=== PATIENT | female | born 1985 | race Caucasian/White ===

== ENCOUNTER 2016-10-28 15:17 | Emergency (ER) | payer OTHER ==
[~2016-10-28] VITALS: Ht 165.1 cm; Wt 95.6 kg
[~2016-10-28 15:17] MED LIST: ATENOLOL PO; CITALOPRAM HBR10 MG PO; ENDOCET 5-3251 EACH PO; GLYBURIDE-METF1 EAC1 PO; IBUPROFEN800 MG PO; METHYLDOPA250 MG PO; METOPROLOL TAR100 MG PO; PRENATAL TABLE1 EAC3 PO; TAMIFLU75 MG PO; ZOFRAN4 MG PO
[2016-10-28 15:35] VITALS: BP 152/87
[2016-10-28] MEDS ORDERED: TESSALON200 MG PO (16:53)
== END 2016-10-28 17:16 | disposition home or self-care (01) ==
LOC: EME 15:17
DX: R05 Cough (principal); F17.200 Nicotine dependence, unspecified, uncomplicated
CPT/HCPCS: 71020; 99281; 99283

== ENCOUNTER 2016-11-13 16:25 | Inpatient (IN) | payer OTHER ==
[~2016-11-13] VITALS: Ht 165.1 cm; Wt 95.8 kg
[~2016-11-13 16:25] MED LIST changes: -CITALOPRAM HBR10 MG PO; +CITALOPRAM HBR20 MG PO; +TESSALON200 MG PO
[2016-11-13 17:31] LABS: ADD MIUA? YES; BILIRUBIN NEGATIVE; BLOOD NEGATIVE; COLOR YELLOW ((YELLOW)); GLUCOSE (STRIP) >=500; KETONES 5; LEUKOCYTES LARGE; NITRITE NEGATIVE; PROTEIN (STRIP) 30; SPECIFIC GRAVITY 1.025 (1.000-1.030); UROBILINOGEN 0.2 MG/DL (0.2-1.0)
[2016-11-13 17:32] LABS: INTERNAL CONTROL VALID? YES
[2016-11-13 17:54] LABS: BACTERIA NONE SEEN /HPF; EPITHELIAL CELLS 1+ /HPF; MUCUS NONE SEEN /LPF; UCUL ADDED? YES; WHITE BLOOD CELLS TNTC /HPF (0-5)
[2016-11-13 18:09] LABS: EOSINOPHIL (%) 0.2 % (0-5); HEMATOCRIT 34.7 % (36.0-46.0); IMMATURE GRANULOCYTE (%) 0.4 % (0.0-0.7); IMMATURE GRANULOCYTE COUNT 0.1 K/uL; INSTRUMENT ABS NEUTROPHIL CT 11.1 K/uL; LYMPHOCYTE COUNT 1.3 K/uL (1.0-2.8); MCH 28.2 PG (29.0-34.0); MCHC 33.4 G/DL (30.0-36.0); MCV 84.2 FL (83-99); MONOCYTE (%) 8.7 % (3-12); MONOCYTE COUNT 1.2 K/uL (0-0.8); NEUTROPHIL (%) 80.9 % (45-76); NEUTROPHIL COUNT 11.1 K/uL (1.8-6.4); PLATELET COUNT 268 K/uL (156-360); RBC DIS.WIDTH-CV 12.3 % (11.8-14.6); RBC DIS.WIDTH-SD 37.5 % (39-53); RED BLOOD COUNT 4.12 M/uL (3.80-5.20); WHITE BLOOD COUNT 13.7 K/uL (4.1-10.2)
[2016-11-13 18:20] LABS: CHLORIDE 97 mEq/L (99-109); POTASSIUM 3.3 mEq/L (3.7-5.4); SODIUM 133 mEq/L (136-147)
[2016-11-13 18:22] LABS: GLUCOSE 319 mg/dL (70-99)
[2016-11-13 18:23] LABS: ANION GAP 12 MEQ/L (2-14)
[2016-11-13 18:24] LABS: TOTAL BILIRUBIN 0.3 mg/dL (0.0-1.0)
[2016-11-13 18:25] LABS: ALKALINE PHOSPHATASE 80 IU/L (3-129)
[2016-11-13 18:26] LABS: GFR ESTIMATE (CALCULATED) > 59 mL/min/
[2016-11-13 18:27] LABS: UREA NITROGEN (BUN) 6 mg/dL (9-23)
[2016-11-13] MEDS ORDERED: LISINOPRIL40 MG PO (19:52)
[2016-11-13 22:41] VITALS: BP 126/62
[2016-11-14 04:01] VITALS: BP 122/62
[2016-11-14 05:34] LABS: HEMATOCRIT 35.1 % (36.0-46.0); MCH 28.1 PG (29.0-34.0); MCHC 32.5 G/DL (30.0-36.0); MCV 86.5 FL (83-99); MEAN PLAT.VOLUME 9.9 uM^3 (9.5-12.4); PLATELET COUNT 255 K/uL (156-360); RBC DIS.WIDTH-CV 12.6 % (11.8-14.6); RBC DIS.WIDTH-SD 40.1 % (39-53); RED BLOOD COUNT 4.06 M/uL (3.80-5.20); WHITE BLOOD COUNT 15.2 K/uL (4.1-10.2)
[2016-11-14 06:01] LABS: ANION GAP 7 MEQ/L (2-14); CHLORIDE 102 MEQ/L (99-109); GFR ESTIMATE (CALCULATED) > 59 mL/min/; GLUCOSE 224 mg/dL (70-99); POTASSIUM 3.7 MEQ/L (3.7-5.4); SAMPLE HEMOLYSIS CHECK 0; SAMPLE ICTERIC CHECK 0; SAMPLE LIPEMIA CHECK 0; SODIUM 138 MEQ/L (136-147); UREA NITROGEN (BUN) 7 mg/dL (9-23)
[2016-11-14 06:42] VITALS: BP 132/78
[2016-11-14 08:12] LABS: POINT-OF-CARE USER ID NUTSLF44
[2016-11-14 08:14] VITALS: BP 128/78
[2016-11-14 11:13] VITALS: BP 133/87
[2016-11-14 12:28] LABS: Estimated Average Glucose 229 mg/dL (70-123); HEMOGLOBIN A1c (GLYCOHEMOGLOB) 9.6 % HGB (Below 5.7)
[2016-11-14 12:46] LABS: POINT-OF-CARE METER ID UU13113698; POINT-OF-CARE USER ID ENVKC36
[2016-11-14 15:35] VITALS: BP 139/73
[2016-11-14 16:31] LABS: POINT-OF-CARE METER ID UU14208750
[2016-11-14 21:37] LABS: POINT-OF-CARE METER ID UU14208750
[2016-11-15 00:18] VITALS: BP 129/71
[2016-11-15 06:14] LABS: HEMATOCRIT 29.5 % (36.0-46.0); MCH 28.7 PG (29.0-34.0); MCHC 33.2 G/DL (30.0-36.0); MCV 86.5 FL (83-99); MEAN PLAT.VOLUME 10.3 uM^3 (9.5-12.4); PLATELET COUNT 237 K/uL (156-360); RBC DIS.WIDTH-CV 12.7 % (11.8-14.6); RBC DIS.WIDTH-SD 40.2 % (39-53); RED BLOOD COUNT 3.41 M/uL (3.80-5.20); WHITE BLOOD COUNT 9.8 K/uL (4.1-10.2)
[2016-11-15 06:24] LABS: POINT-OF-CARE METER ID UU14208750
[2016-11-15 06:39] LABS: ANION GAP 11 MEQ/L (2-14); CHLORIDE 103 MEQ/L (99-109); GFR ESTIMATE (CALCULATED) > 59 mL/min/; GLUCOSE 243 mg/dL (70-99); POTASSIUM 3.4 MEQ/L (3.7-5.4); SAMPLE HEMOLYSIS CHECK 0; SAMPLE ICTERIC CHECK 0; SAMPLE LIPEMIA CHECK 0; SODIUM 138 MEQ/L (136-147); UREA NITROGEN (BUN) 5 mg/dL (9-23)
[2016-11-15 06:51] LABS: EOSINOPHIL (%) 2.3 % (0-5); EOSINOPHIL COUNT 0.2 K/uL (0-0.3); IMMATURE GRANULOCYTE (%) 1.4 % (0.0-0.7); IMMATURE GRANULOCYTE COUNT 0.1 K/uL; INSTRUMENT ABS NEUTROPHIL CT 6.7 K/uL; LYMPHOCYTE COUNT 1.8 K/uL (1.0-2.8); MONOCYTE COUNT 0.9 K/uL (0-0.8); NEUTROPHIL (%) 68.5 % (45-76); NEUTROPHIL COUNT 6.7 K/uL (1.8-6.4)
[2016-11-15 07:50] VITALS: BP 143/88
[2016-11-15 12:01] LABS: POINT-OF-CARE METER ID UU14208750; POINT-OF-CARE USER ID PUTDRM
[2016-11-15 15:00] VITALS: BP 128/78
[2016-11-15 16:43] LABS: POINT-OF-CARE METER ID UU14208750; POINT-OF-CARE USER ID PUTDRM
[2016-11-15 21:58] LABS: POINT-OF-CARE METER ID UU14162508
[2016-11-15 23:37] VITALS: BP 159/78
[2016-11-16 07:06] LABS: POINT-OF-CARE METER ID UU14162508
[2016-11-16 07:50] VITALS: BP 138/68
[2016-11-16 11:08] LABS: POINT-OF-CARE METER ID UU14208750
[2016-11-16] MEDS ORDERED: CEFTIN500 MG PO (13:10)
== END 2016-11-16 13:46 | disposition home or self-care (01) | DRG 690 ==
LOC: EME 16:25 → 4EAST 21:30 → EDOF 21:30 → ENRESERV 21:34 → 4EAST 22:27 → ENRESERV 11-14 13:39 → 2EAST 11-14 15:30
PROVIDERS: Emergency Medicine; Internal Medicine
DX: N10 Acute pyelonephritis (principal); B96.20 Unspecified Escherichia coli [E. coli] as the cause of diseases classified elsewhere; E86.0 Dehydration; E87.6 Hypokalemia; R00.0 Tachycardia, unspecified; E11.9 Type 2 diabetes mellitus without complications; I10 Essential (primary) hypertension; F17.210 Nicotine dependence, cigarettes, uncomplicated
CPT/HCPCS: 71020; 76770; 80048; 80053; 80200; 81003; 82948; 83036; 83605; 84703; 85025; 85027; 87040; 87077; 87086; 87186; 99281; 99285; J0696; J1650; J1815; J2270; J2405; J3260; J7030; J7050

== ENCOUNTER 2017-02-17 08:51 | Emergency (ER) | payer OTHER ==
[~2017-02-17] VITALS: Ht 165.1 cm; Wt 95.4 kg
[~2017-02-17 08:51] MED LIST changes: +CEFTIN500 MG PO; +LISINOPRIL40 MG PO
[2017-02-17] MEDS ORDERED: METFORMIN HCL1000 MG PO (09:09)
[2017-02-17] MEDS ORDERED: GLIPIZIDE5 MG PO (09:09)
[2017-02-17 09:43] LABS: CARBON DIOXIDE (BICARBONATE) 22.8 MEQ/L (20-31)
[2017-02-17 09:54] LABS: BASOPHIL (%) 0.1 % (0-1); EOSINOPHIL COUNT 0.1 K/uL (0-0.3); HEMATOCRIT 44.6 % (36.0-46.0); IMMATURE GRANULOCYTE (%) 0.6 % (0.0-0.7); LYMPHOCYTE COUNT 0.4 K/uL (1.0-2.8); MCH 28.7 PG (29.0-34.0); MCHC 33.6 G/DL (30.0-36.0); MCV 85.4 FL (83-99); MONOCYTE (%) 2.9 % (3-12); MONOCYTE COUNT 0.2 K/uL (0-0.8); NEUTROPHIL (%) 89.4 % (45-76); NEUTROPHIL COUNT 6.2 K/uL (1.8-6.4); PLATELET COUNT 169 K/uL (156-360); RBC DIS.WIDTH-CV 13.3 % (11.8-14.6); RBC DIS.WIDTH-SD 41.5 % (39-53); RED BLOOD COUNT 5.22 M/uL (3.80-5.20)
[2017-02-17 10:05] LABS: ALBUMIN 3.7 g/dL (3.2-4.8); CHLORIDE 103 mEq/L (99-109); MAGNESIUM 1.6 mg/dL (1.3-2.7); POTASSIUM 4.8 mEq/L (3.7-5.4); SODIUM 131 mEq/L (136-147)
[2017-02-17 10:07] LABS: GLUCOSE 258 mg/dL (70-99); TOTAL PROTEIN 6.5 g/dL (6.4-8.3)
[2017-02-17 10:09] LABS: TOTAL BILIRUBIN 0.7 mg/dL (0.0-1.0)
[2017-02-17 10:11] LABS: ALKALINE PHOSPHATASE 53 IU/L (3-129); CREATININE 0.6 mg/dL (0.6-1.3); GFR ESTIMATE (CALCULATED) > 59 mL/min/
[2017-02-17 10:12] LABS: AST (GOT) 16 IU/L (2-34); UREA NITROGEN (BUN) 20 mg/dL (9-23)
[2017-02-17 10:14] LABS: ALT (GPT) 13 IU/L (3-49); LIPASE 28 U/L (1.0-51.0)
[2017-02-17 10:20] LABS: QUANTITATIVE HCG < 4.0 MIU/ML
[2017-02-17 10:33] LABS: APPEARANCE SL.HAZY ((CLEAR)); BILIRUBIN NEGATIVE; BLOOD NEGATIVE; COLOR YELLOW ((YELLOW)); GLUCOSE (STRIP) >=500; KETONES 20; LEUKOCYTES TRACE; NITRITE NEGATIVE; PROTEIN (STRIP) NEGATIVE; UROBILINOGEN 0.2 MG/DL (0.2-1.0)
[2017-02-17 10:35] LABS: BACTERIA NONE SEEN /HPF; EPITHELIAL CELLS 1+ /HPF; MUCUS TRACE /LPF; RED BLOOD CELLS 0-5 /HPF (0-5); UCUL ADDED? NO; WHITE BLOOD CELLS 0-5 /HPF (0-5)
[2017-02-17] MEDS ORDERED: ZOFRAN ODT4 MG PO (11:00)
[2017-02-17] MEDS ORDERED: NAPROXEN500 MG PO (11:00)
[2017-02-17 12:28] VITALS: BP 132/94
== END 2017-02-17 12:28 | disposition home or self-care (01) ==
LOC: EME 08:51
PROVIDERS: Physician Assistant
DX: R11.2 Nausea with vomiting, unspecified (principal); E87.1 Hypo-osmolality and hyponatremia; M62.838 Other muscle spasm; I10 Essential (primary) hypertension; E11.9 Type 2 diabetes mellitus without complications; Z79.84 Long term (current) use of oral hypoglycemic drugs; F17.200 Nicotine dependence, unspecified, uncomplicated
CPT/HCPCS: 80053; 81003; 82803; 83690; 83735; 84702; 85025; 99281; 99285; J1885; J7030; J7120

== ENCOUNTER 2017-05-06 11:14 | Emergency (ER) | payer OTHER ==
[~2017-05-06] VITALS: Ht 165.1 cm; Wt 102.3 kg
[~2017-05-06 11:14] MED LIST changes: +GLIPIZIDE5 MG PO; +METFORMIN HCL1000 MG PO; +NAPROXEN500 MG PO; +ZOFRAN ODT4 MG PO
[2017-05-06 11:49] LABS: HEMATOCRIT 41.7 % (36.0-46.0); HEMOGLOBIN 13.8 G/DL (11.9-15.5); MCH 28.2 PG (29.0-34.0); MCHC 33.1 G/DL (30.0-36.0); MCV 85.3 FL (83-99); PLATELET COUNT 233 K/uL (156-360); RBC DIS.WIDTH-CV 12.7 % (11.8-14.6); RBC DIS.WIDTH-SD 39.1 % (39-53); RED BLOOD COUNT 4.89 M/uL (3.80-5.20); WHITE BLOOD COUNT 11.9 K/uL (4.1-10.2)
[2017-05-06 12:00] LABS: ALBUMIN 4.2 g/dL (3.2-4.8); CHLORIDE 106 mEq/L (99-109); POTASSIUM 4.7 mEq/L (3.7-5.4); SODIUM 135 mEq/L (136-147)
[2017-05-06 12:02] LABS: GLUCOSE 194 mg/dL (70-99)
[2017-05-06 12:04] LABS: TOTAL BILIRUBIN 0.3 mg/dL (0.0-1.0)
[2017-05-06 12:06] LABS: ALKALINE PHOSPHATASE 56 IU/L (3-129); CREATININE 0.7 mg/dL (0.6-1.3); GFR ESTIMATE (CALCULATED) > 59 mL/min/
[2017-05-06 12:06] LABS: APPEARANCE CLEAR ((CLEAR)); BILIRUBIN NEGATIVE; BLOOD NEGATIVE; COLOR YELLOW ((YELLOW)); GLUCOSE (STRIP) >=500; KETONES NEGATIVE; LEUKOCYTES NEGATIVE; NITRITE NEGATIVE; PROTEIN (STRIP) NEGATIVE; SPECIFIC GRAVITY 1.022 (1.000-1.030); UCUL ADDED? NO; UROBILINOGEN 0.2 MG/DL (0.2-1.0)
[2017-05-06 12:07] LABS: UREA NITROGEN (BUN) 13 mg/dL (9-23)
[2017-05-06 12:08] LABS: AST (GOT) 12 IU/L (2-34)
[2017-05-06 12:09] LABS: ALT (GPT) 16 IU/L (3-49)
[2017-05-06 12:18] LABS: QUANTITATIVE HCG < 4.0 MIU/ML
[2017-05-06 13:23] LABS: LIPASE 14 U/L (1.0-51.0)
[2017-05-06] MEDS ORDERED: PEPCID20 MG PO (13:42)
[2017-05-06] MEDS ORDERED: CARAFATE1 GM PO (13:42)
[2017-05-06 13:56] VITALS: BP 146/81
== END 2017-05-06 14:00 | disposition home or self-care (01) ==
LOC: EME 11:14
DX: K29.70 Gastritis, unspecified, without bleeding (principal); I10 Essential (primary) hypertension; E11.9 Type 2 diabetes mellitus without complications; Z79.84 Long term (current) use of oral hypoglycemic drugs; F17.200 Nicotine dependence, unspecified, uncomplicated
CPT/HCPCS: 80053; 81003; 83690; 84702; 85027; 99281; 99284

== ENCOUNTER 2017-06-14 12:40 | Inpatient (IN) | payer OTHER ==
[~2017-06-14] VITALS: Ht 165.1 cm; Wt 105.3 kg
[~2017-06-14 12:40] MED LIST changes: +CARAFATE1 GM PO; +PEPCID20 MG PO
[2017-06-14 13:54] LABS: HEMATOCRIT 38.6 % (36.0-46.0); HEMOGLOBIN 13.2 G/DL (11.9-15.5); MCHC 34.2 G/DL (30.0-36.0); MCV 84.8 FL (83-99); PLATELET COUNT 229 K/uL (156-360); RBC DIS.WIDTH-CV 12.8 % (11.8-14.6); RBC DIS.WIDTH-SD 39.5 % (39-53); RED BLOOD COUNT 4.55 M/uL (3.80-5.20); WHITE BLOOD COUNT 12.8 K/uL (4.1-10.2)
[2017-06-14 14:05] LABS: CHLORIDE 100 mEq/L (99-109); POTASSIUM 4.4 mEq/L (3.7-5.4); SODIUM 133 mEq/L (136-147)
[2017-06-14 14:06] LABS: GLUCOSE 306 mg/dL (70-99)
[2017-06-14 14:10] LABS: CREATININE 0.8 mg/dL (0.6-1.3); GFR ESTIMATE (CALCULATED) > 59 mL/min/
[2017-06-14 14:11] LABS: UREA NITROGEN (BUN) 11 mg/dL (9-23)
[2017-06-14 14:20] LABS: QUANTITATIVE HCG < 4.0 MIU/ML
[2017-06-14 14:22] LABS: APPEARANCE CLEAR ((CLEAR)); BILIRUBIN NEGATIVE; BLOOD SMALL; COLOR AMBER ((YELLOW)); GLUCOSE (STRIP) >=500; KETONES NEGATIVE; LEUKOCYTES SMALL; NITRITE POSITIVE; PROTEIN (STRIP) NEGATIVE; SPECIFIC GRAVITY 1.025 (1.000-1.030)
[2017-06-14 14:32] LABS: BACTERIA NONE SEEN /HPF; EPITHELIAL CELLS RARE /HPF; MUCUS TRACE /LPF; RED BLOOD CELLS 0-5 /HPF (0-5); UCUL ADDED? YES; WHITE BLOOD CELLS TNTC /HPF (0-5)
[2017-06-14] MEDS ORDERED: BUPROPION HCL150 M2 PO (17:48)
[2017-06-14] MEDS ORDERED: LISINOPRIL40 MG PO (17:56)
[2017-06-14] MEDS ORDERED: ADVIL,NUPRIN,M200 MG PO (17:56)
[2017-06-14 20:43] VITALS: BP 112/70
[2017-06-14 23:34] VITALS: BP 119/65
[2017-06-15 03:17] VITALS: BP 133/74
[2017-06-15 07:19] VITALS: BP 135/76
[2017-06-15 15:15] VITALS: BP 123/63
[2017-06-15 23:37] VITALS: BP 133/77
[2017-06-16 07:21] LABS: ALBUMIN 3.2 G/DL (3.2-4.8); ALKALINE PHOSPHATASE 54 IU/L (3-129); ALT (GPT) 6 IU/L (3-49); AST (GOT) < 7 IU/L (2-34); CHLORIDE 102 MEQ/L (99-109); CREATININE 0.5 MG/DL (0.6-1.3); GFR ESTIMATE (CALCULATED) > 59 mL/min/; GLUCOSE 235 mg/dL (70-99); HEMATOCRIT 31.8 % (36.0-46.0); HEMOGLOBIN 10.5 G/DL (11.9-15.5); MCH 27.9 PG (29.0-34.0); MCV 84.4 FL (83-99); PLATELET COUNT 213 K/uL (156-360); POTASSIUM 3.8 MEQ/L (3.7-5.4); RBC DIS.WIDTH-CV 12.7 % (11.8-14.6); RBC DIS.WIDTH-SD 38.7 % (39-53); RED BLOOD COUNT 3.77 M/uL (3.80-5.20); SODIUM 133 MEQ/L (136-147); TOTAL BILIRUBIN 0.2 MG/DL (0.0-1.0); TOTAL PROTEIN 5.6 G/DL (6.4-8.3); UREA NITROGEN (BUN) 9 mg/dL (9-23)
[2017-06-16 07:35] VITALS: BP 128/71
[2017-06-16 15:37] VITALS: BP 145/65
[2017-06-17 00:08] VITALS: BP 133/80
[2017-06-17 07:27] LABS: HEMATOCRIT 31.1 % (36.0-46.0); HEMOGLOBIN 10.3 G/DL (11.9-15.5); MCH 28.1 PG (29.0-34.0); MCHC 33.1 G/DL (30.0-36.0); MCV 84.7 FL (83-99); PLATELET COUNT 250 K/uL (156-360); RBC DIS.WIDTH-CV 12.7 % (11.8-14.6); RBC DIS.WIDTH-SD 38.8 % (39-53); RED BLOOD COUNT 3.67 M/uL (3.80-5.20); WHITE BLOOD COUNT 9.2 K/uL (4.1-10.2)
[2017-06-17 07:53] VITALS: BP 141/88
[2017-06-17 07:59] LABS: ALBUMIN 3.2 G/DL (3.2-4.8); ALKALINE PHOSPHATASE 51 IU/L (3-129); ALT (GPT) 7 IU/L (3-49); AST (GOT) 7 IU/L (2-34); CHLORIDE 103 MEQ/L (99-109); CREATININE 0.4 MG/DL (0.6-1.3); GFR ESTIMATE (CALCULATED) > 59 mL/min/; POTASSIUM 3.8 MEQ/L (3.7-5.4); SODIUM 137 MEQ/L (136-147); TOTAL BILIRUBIN 0.2 MG/DL (0.0-1.0); TOTAL PROTEIN 5.6 G/DL (6.4-8.3); UREA NITROGEN (BUN) 7 mg/dL (9-23)
[2017-06-17 08:02] LABS: GLUCOSE 116 mg/dL (70-99)
[2017-06-17] MEDS ORDERED: KEFLEX500 MG PO (09:52)
[2017-06-17] MEDS ORDERED: LEVEMIR100 UNIT/2 SC (09:54)
[2017-06-17] MEDS ORDERED: TRAMADOL HCL50 MG PO (09:54)
[2017-06-17] MEDS ORDERED: TYLENOL REGULA325 MG PO (09:54)
[2017-06-17 10:45] VITALS: BP 134/78
== END 2017-06-17 12:44 | disposition home or self-care (01) | DRG 690 ==
LOC: EME 12:40 → EDOF 17:00 → 2EAST 17:00 → ENRESERV 17:15 → 2EAST 20:38
PROVIDERS: Family Medicine; Internal Medicine; Nurse Practitioner Family
DX: N10 Acute pyelonephritis (principal); E11.65 Type 2 diabetes mellitus with hyperglycemia; I10 Essential (primary) hypertension; F17.210 Nicotine dependence, cigarettes, uncomplicated; E66.9 Obesity, unspecified; Z68.38 Body mass index [BMI] 38.0-38.9, adult; Z79.84 Long term (current) use of oral hypoglycemic drugs; Z87.440 Personal history of urinary (tract) infections
CPT/HCPCS: 74176; 74177; 80048; 80053; 81003; 82948; 83605; 84702; 85027; 87040; 87086; 99281; 99285; J0696; J1650; J1815; J1885; J2405; J7030